=== PATIENT | female | born 1980 | race Caucasian/White ===

== ENCOUNTER 2023-11-09 17:46 | Outpatient (RCR) | payer OTHER, SELFPAY | END 2023-11-09 23:59 | disposition home or self-care (01) | LOC: RPT 17:46 | PROVIDERS: ATTENDING PHYSICIAN Nurse Practitioner Family | DX: M54.41 Lumbago with sciatica, right side (principal); Z73.6 Limitation of activities due to disability | CPT/HCPCS: 97110; 97112; 97161 ==

== ENCOUNTER 2023-11-30 18:16 | Outpatient (RCR) | payer OTHER, SELFPAY | END 2023-11-30 23:59 | disposition home or self-care (01) | LOC: RPT 18:16 | PROVIDERS: ATTENDING PHYSICIAN Nurse Practitioner Family | DX: M54.41 Lumbago with sciatica, right side (principal); Z73.6 Limitation of activities due to disability | CPT/HCPCS: 97110; 97112 ==

== ENCOUNTER 2024-01-02 18:14 | Outpatient (RCR) | payer OTHER, SELFPAY | END 2024-01-03 07:02 | disposition home or self-care (01) | LOC: RPT 18:14 | PROVIDERS: ATTENDING PHYSICIAN Nurse Practitioner Family | DX: M54.41 Lumbago with sciatica, right side (principal); Z73.6 Limitation of activities due to disability | CPT/HCPCS: 97110; 97112 ==

== ENCOUNTER → 2024-04-22 14:56 | Outpatient (REF) | payer BC, SELFPAY | LOC: HWRAD 14:56 | PROVIDERS: ATTENDING PHYSICIAN Nurse Practitioner Family | DX: M25.521 Pain in right elbow (principal) | CPT/HCPCS: 73080 ==

== ENCOUNTER 2024-05-02 06:16 | Day surgery (SDC) | payer BC, SELFPAY | END 2024-05-02 14:54 | disposition home or self-care (01) | LOC: GI 06:16 | PROVIDERS: ATTENDING PHYSICIAN Internal Medicine | DX: Z12.11 Encounter for screening for malignant neoplasm of colon (principal) | CPT/HCPCS: G0121 ==

== ENCOUNTER → 2024-06-07 12:10 | Outpatient (REF) | payer BC, SELFPAY | LOC: HWRAD 12:10 | PROVIDERS: ATTENDING PHYSICIAN Nurse Practitioner Family | DX: R19.09 Other intra-abdominal and pelvic swelling, mass and lump (principal) | CPT/HCPCS: 76705; 76882 ==

== ENCOUNTER → 2024-11-22 11:54 | Outpatient (REF) | payer BC, SELFPAY | LOC: HWRAD 11:54 | PROVIDERS: ATTENDING PHYSICIAN Nurse Practitioner Family | DX: M25.511 Pain in right shoulder (principal); M25.512 Pain in left shoulder | CPT/HCPCS: 73030 ==